=== PATIENT | male | born 2000 | race Two or more races ===

== ENCOUNTER 2020-02-19 09:19 | Emergency (ER) | payer OTHER ==
[~2020-02-19] VITALS: Ht 180.3 cm; Wt 59.0 kg
== END 2020-02-19 12:40 | disposition home or self-care (01) ==
LOC: ER 09:19
DX: E86.0 Dehydration (principal); K52.89 Other specified noninfective gastroenteritis and colitis; B96.0 Mycoplasma pneumoniae [M. pneumoniae] as the cause of diseases classified elsewhere; Z03.818 Encounter for observation for suspected exposure to other biological agents ruled out

== ENCOUNTER → 2020-02-23 | Emergency (ER) | payer OTHER ==
[~2020-02-23] VITALS: Ht 177.8 cm; Wt 57.6 kg
== END | disposition left against medical advice (07) ==
LOC: ER 15:26
DX: Z53.20 Procedure and treatment not carried out because of patient's decision for unspecified reasons (principal)

== ENCOUNTER 2020-04-07 10:45 | Emergency (ER) | payer OTHER ==
[~2020-04-07] VITALS: Ht 177.8 cm; Wt 55.8 kg
[2020-04-07] MEDS ORDERED: PEPCID AC20 MG PO (14:56)
[2020-04-07] MEDS ORDERED: INTESTINEX680 M1 PO (14:56)
[2020-04-07] MEDS ORDERED: ZITHROMAX200 MG PO (14:56)
[2020-04-07] MEDS ORDERED: PHENERGAN25 MG PO (14:56)
== END 2020-04-07 15:45 | disposition home or self-care (01) ==
LOC: ER 10:45
DX: R10.13 Epigastric pain (principal)

== ENCOUNTER 2021-09-24 00:09 | Emergency (ER) | payer OTHER ==
[~2021-09-24] VITALS: Ht 180.3 cm; Wt 59.0 kg
[~2021-09-24 00:09] MED LIST: INTESTINEX680 M1 PO; PEPCID AC20 MG PO; PHENERGAN25 MG PO; ZITHROMAX200 MG PO
[2021-09-24] MEDS ORDERED: CLONAZEPAM0.5 M1 (00:27)
[2021-09-24] MEDS ORDERED: ZOLOFT50 MG (00:27)
[2021-09-24] MEDS ORDERED: SEROQUEL50 MG (00:28)
== END 2021-09-24 13:40 ==
LOC: ER 00:09
DX: T40.1X1A Poisoning by heroin, accidental (unintentional), initial encounter (principal); R23.0 Cyanosis; X58.XXXA Exposure to other specified factors, initial encounter; Y92.89 Other specified places as the place of occurrence of the external cause

== ENCOUNTER 2022-03-09 04:03 | Emergency (ER) | payer OTHER ==
[~2022-03-09] VITALS: Ht 177.8 cm; Wt 68.0 kg
[~2022-03-09 04:03] MED LIST changes: +CLONAZEPAM0.5 M1; +SEROQUEL50 MG; +ZOLOFT50 MG
== END 2022-03-09 13:12 | disposition home or self-care (01) ==
LOC: ER 04:03
DX: T40.1X1A Poisoning by heroin, accidental (unintentional), initial encounter (principal); R11.0 Nausea; F19.10 Other psychoactive substance abuse, uncomplicated

== ENCOUNTER 2022-11-23 09:26 | Inpatient (IN) | payer OTHER ==
[~2022-11-23] VITALS: Ht 152.4 cm; Wt 77.1 kg
[2022-11-23] MEDS ORDERED: SERTRALINE HCL100 MG PO (09:35)
[2022-11-23] MEDS ORDERED: QUETIAPINE FUM400 MG PO (09:35)
[2022-11-23] MEDS ORDERED: GRALISE600 MG (09:36)
[2022-11-23] MEDS ORDERED: ALPRAZOLAM1 MG PO (09:36)
[2022-11-23] MEDS ORDERED: QUETIAPINE FUM100 MG PO (09:38)
--- NOTE | 2022-11-23 09:41 | NUR ---
SE RECIBE PACIENTE HIPOACTIVO EN AMBULANCIA ACOMPANADO DE FAMILIAR CON APARENTE SOBREDOSIS, HEAD PADRE REFIERE QUE ZENY CONSUMIO FENTANYL Y HEROINA. CANALIZADO DESDE AMBULANCIA CON ANGIO #20 EN MANO DE DERECHA, PATENTE, JALEN DE EDEMA Y ERITEMA. SE UBICA PTE EN AREA DE CRITICO
--- NOTE | 2022-11-23 09:47 | NUR ---
SE CONECTA A PACIENTE A MONITOR CARDIACO Y OXIMETRIA DE PULSO CONTINA. SE CANALIZA EN EMILYO LUISDARYL, ANGIO #18, RECIBIENDO .9NSS 1000 BAJANDO A 200ML/HR. SE COLECTAN MUESTRAS DE MORTEZA BAJO MEDIDAS ASEPTICAS. SE REALIZA EKG Y SE LE PRESENTA A MYRONDANAE Y SE LE COLOCA FOLLEY BAJANDO A GRAVEDAD. SE JOSE MUESTRA DE DRUG SCREEN
--- NOTE | 2022-11-23 16:20 | NUR ---
SE RECIBE PTE NO ALERTA NI ORIENTADO, REACCIONA AL DOLOR, CONECTADO A MONITOR CARDIACO, CON REYES, CANALIZADO EN MANO DERECHA CON ANGIO 18 EN ERICA Y UN 20 EN BRAZO, BAJANDO UN .9 NSS 1000 A 200 ML/HR. CON UN VENTURY MASK. BARANDAS ELEVADAS.
--- NOTE | 2022-11-23 19:03 | NUR ---
PTE DESPIERTA Y SE LOGRA REALIZAR PREGUNTAS SOBRE INTENSIONES SUICIDAS EL MISMO REFIERE NO TENER INTENSIONES DE SUICIDIO.
== END 2022-11-28 18:06 | disposition designated cancer center or children's hospital (05) | DRG 917 ==
LOC: ER 09:26 → MEDJ 21:35 → ICU 21:35 → ICU-2 21:35 → ICU 11-24 04:05 → MEDI 11-24 18:59 → MEDJ 11-24 20:11
PROVIDERS: ADMIT Internal Medicine; ATTEND Internal Medicine
PROC: B24BZZZ Ultrasonography of Heart with Aorta (ICD-10-PCS; principal; 2022-11-23)
PROC: B030YZZ Magnetic Resonance Imaging (MRI) of Brain using Other Contrast (ICD-10-PCS; 2022-11-24)
PROC: 4A12X4Z Monitoring of Cardiac Electrical Activity, External Approach (ICD-10-PCS; 2022-11-24)
DX: T40.1X1A Poisoning by heroin, accidental (unintentional), initial encounter (principal); I63.81 Other cerebral infarction due to occlusion or stenosis of small artery; N17.8 Other acute kidney failure; M62.82 Rhabdomyolysis; F11.20 Opioid dependence, uncomplicated; T40.411A Poisoning by fentanyl or fentanyl analogs, accidental (unintentional), initial encounter; E86.0 Dehydration; R09.02 Hypoxemia; R41.82 Altered mental status, unspecified; Z20.822 Contact with and (suspected) exposure to COVID-19; F32.9 Major depressive disorder, single episode, unspecified
CPT/HCPCS: 70552